=== PATIENT | male | born 1980 | race Caucasian/White ===

== ENCOUNTER 2016-12-07 12:30 | Emergency (ER) | payer BC ==
[~2016-12-07] VITALS: Ht 180.3 cm; Wt 79.4 kg
[2016-12-07] MEDS ORDERED: IV NORMAL SALINE 1000 ML BAG IV ONE (12:45)
--- NOTE | 2016-12-07 13:17 | NUR ---
pt was evaluated by dr aquino. pt was d/c to home. d/c instructions given to the pt by dr aquino.
[2016-12-07 13:22] VITALS: BP 125/77
[2016-12-07 14:38] LABS: BASOPHILS % (AUTO) 0.4 % (0.0-2.0); EOSINOPHILS # (AUTO) 0.1 K/uL (0.0-0.7); HEMATOCRIT 45.5 % (40-50); HEMOGLOBIN 15.3 G/DL (14.0-18.0); LYMPHOCYTES # (AUTO) 1.7 K/UL (0.8-4.8); LYMPHOCYTES % (AUTO) 27.1 % (20.5-51.5); MEAN CORPUSCULAR HEMOGLOBIN 29.6 UUG (27.0-31.0); MEAN CORPUSCULAR HGB CONC 34 g/dL (32.0-37.0); MEAN CORPUSCULAR VOLUME 88.1 FL (82.0-92.0); MONOCYTES # (AUTO) 0.4 K/UL (0.1-1.30); MONOCYTES % (AUTO) 6.9 % (0.0-11.0); NEUTROPHILS # (AUTO) 4.1 K/UL (1.8-8.9); NEUTROPHILS % (AUTO) 64.6 % (38.5-71.5); PLATELET COUNT (AUTO) 133 K/UL (150-450); RED BLOOD CELL COUNT(AUTO) 5.17 MIL/UL (4.7-6.1); RED CELL DISTRIBUTION WIDTH 12.8 % (11.5-14.5); WHITE BLOOD COUNT (AUTO) 6.3 K/UL (4.0-11.2)
[2016-12-07 14:46] LABS: CALCIUM 9.4 mg/dL (8.5-10.1); CREATININE 1.1 mg/dL (0.6-1.3); POTASSIUM 3.6 mmol/L (3.5-5.1)
[2016-12-07 14:51] LABS: ALBUMIN 4.6 g/dL (3.4-5.0); BILIRUBIN,DIRECT 0.1 mg/dL (0.0-0.2); BILIRUBIN,TOTAL 0.6 mg/dL (0.2-1.0)
== END 2016-12-07 13:23 | disposition home or self-care (01) ==
LOC: ER 12:30
DX: R10.31 Right lower quadrant pain (principal)
CPT/HCPCS: 85025; 85730; A4663; J7030